=== PATIENT | female | born 2000 | race African-American/Black ===

== ENCOUNTER 2023-09-02 21:41 | Emergency (ER) | payer OTHER ==
[2023-09-02] MEDS ORDERED: ONDANSETRON 4 MG/2 ML VIAL IVP STA (22:02)
[2023-09-02] MEDS ORDERED: SODIUM CHLORIDE 0.9% 1,000 ML IV STA (22:02)
[2023-09-02] MEDS ORDERED: HYDROmorphone 1 MG/ML CARPUJECT IVP STA ×2 (22:02→23:38)
[2023-09-02 22:12] LABS: BASOPHILS % (AUTO) 0.3 %; EOSINOPHILS # (AUTO) 0.1 10^3/uL (0.0-0.7); EOSINOPHILS % (AUTO) 0.5 %; HCT - HEMATOCRIT 34.6 % (37.0-47.0); HGB - HEMOGLOBIN 10.6 g/dL (12.0-16.0); LYMPHOCYTES # (AUTO) 2.5 10^3/uL (1.5-3.5); MEAN CORPUSCULAR HEMOGLOBIN 26.7 pg (27.0-31.0); MEAN CORPUSCULAR HGB CONC 30.6 g/dL (32.0-36.0); MEAN CORPUSCULAR VOLUME 87.2 fL (81.0-99.0); MEAN PLATELET VOLUME 9.7 fL (7.9-10.8); MONOCYTES # (AUTO) 0.4 10^3/uL (0.0-1.0); MONOCYTES % (AUTO) 4.6 %; NEUTROPHILS # (AUTO) 6.2 10^3/uL (1.5-6.6); NEUTROPHILS % (AUTO) 67.4 %; PLT - PLATELET COUNT 331 10^3/uL (130-450); RED BLOOD COUNT 3.97 10^6/uL (4.20-5.40); RED CELL DISTRIBUTION WIDTH 13.6 % (12.0-15.0); WHITE BLOOD COUNT 9.2 x10^3/uL (4.8-10.8)
[2023-09-02 22:32] LABS: ALBUMIN 4.4 g/dL (3.2-5.5); ALBUMIN/GLOBULIN RATIO 1.4 (1.0-2.2); BILIRUBIN,TOTAL 0.3 mg/dL (0.2-1.0); CALCIUM 9.1 mg/dL (8.5-10.3); CREATININE 0.7 mg/dL (0.6-1.3); POTASSIUM 3.8 mmol/L (3.5-4.5); TOTAL PROTEIN 7.5 g/dL (6.4-8.9)
[2023-09-02 22:34] LABS: HCG,QUALITATIVE BLOOD NEGATIVE
[2023-09-02] MEDS ORDERED: DROPERIDOL 5 MG/2 ML VIAL IVP STA (23:38)
[2023-09-02] MEDS ORDERED: iohexoL-300 100 ML VIAL IVP ONE (23:43)
[2023-09-02 23:46] LABS: BILIRUBIN,URINE NEGATIVE (NEGATIVE); GLUCOSE, URINE (UA) NEGATIVE (NEGATIVE); KETONES,URINE (UA) NEGATIVE (NEGATIVE); LEUKOCYTE ESTERASE, URINE NEGATIVE (NEGATIVE); NITRITE,URINE NEGATIVE (NEGATIVE); OCCULT BLOOD,URINE NEGATIVE (NEGATIVE); PROTEIN,URINE NEGATIVE (NEGATIVE); UROBILINOGEN,URINE 0.2 (NORMAL) E.U./dL (NORMAL)
[2023-09-02 23:48] LABS: CLARITY,URINE CLEAR (CLEAR)
[2023-09-02 23:56] VITALS: BP 138/70; O2SAT 96
--- NOTE | 2023-09-03 00:01 | CT Report ---
PROCEDURE: ABDOMEN/PELVIS W INDICATIONS: severe low abd pain CONTRAST: 100 ML OMNI 300 TECHNIQUE: After the administration of contrast, 5 mm thick sections acquired from the diaphragms to the symphys is. 5 mm thick coronal and sagittal reformats were acquired. For radiation dose reduction, the foll owing was used: automated exposure control, adjustment of mA and/or kV according to patient size. COMPARISON: FINDINGS: Image quality: Excellent. Lung bases and heart: 3 mm groundglass density nodule in anterolateral right lung base is seen series 3 image 10. Heart size is normal, no pericardial effusion.. Liver: No solid mass. Gallbladder and biliary tree: No radiopaque stones or wall thickening. No biliary dilation. Spleen: No splenomegaly. Pancreas: No pancreatic ductal dilation. Adrenals: No adrenal nodule. Kidneys and ureters: No hydronephrosis. No renal cystic lesion which requires follow up. No solid mas s. Bowel and peritoneum: There is no evidence of bowel obstruction. Appendix is visualized in right lowe r quadrant abdomen and is normal in size and appearance. No abnormal bowel wall thickening. Mild feca l stasis in the colon is seen. No abscess collection. No free fluid of free air. Lymph nodes: No central or retroperitoneal adenopathy. Vessels: No infrarenal aortic aneurysm. PELVIS Reproductive organs: Fluid is noted within endometrium. Small amount of free fluid is seen in posteri or cul-de-sac.. Bladder: No abnormal wall thickening, accounting for underdistension. Pelvic lymph nodes: No pelvic adenopathy by size criteria. Bones: No aggressive osseous abnormality. Other: No significant ventral or inguinal hernia. IMPRESSION: 1. Normal appendix. No bowel obstruction or abnormal bowel wall thickening. No free fluid of free air . 2. Physiologic amount of free fluid in posterior cul-de-sac. Fluid within endometrium. No gross abnor mality is seen in bilateral ovaries. Reviewed by: Greg Castillo MD on 09/03/2023 12:00 AM PST Approved by: Greg Castillo MD on 09/03/2023 12:00 AM PST Station ID: [id number]
[2023-09-03] MEDS ORDERED: HYDROcod/ACET 5/325 Prepack 4 PO STA (00:36)
[2023-09-03] MEDS ORDERED: ONDANSETRON ODT 4 MG Prepack 2 TL PRN (00:36)
--- NOTE | 2023-09-03 00:39 | ED Physician Documentation ---
PD HPI ABD PAIN - Stated complaint Stated Complaint: ABD PX - Chief complaint Chief Complaint: Abd Pain - History obtained from History obtained from: Patient - Additional information Additional information: The pt comes to the ED with CC of R pelvic and lower quadrant pain for the past approximately 48 hours. She states that the pain had been waxing and waning initially, but for the past 24 hours, has been constant. She denies fevers, chills, appetite change, or nausea. She has had pain like this before, when she had a large ovarian cyst rupture. She states at that time, she was admitted to the hospital for pain control. She denies surgical history on her abdomen or pelvis. No vaginal or urinary sx. 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 - Present Medications Home Medications: Ambulatory Orders Medication Instructions Recorded Confirmed HYDROcod/ACETAM 5/325 [[place] 5/325] 1 - 2 tablet PO Q6H PRN #14 tablet 09/03/23 Ondansetron Odt [Zofran] 4 mg TL Q6H PRN #10 tablet 09/03/23 - Allergies Allergies/Adverse Reactions: Allergies Allergy/AdvReac Type Severity Reaction Status Date / Time No Known Drug Allergies Allergy Verified 09/02/23 21:51 - Social History Does the pt smoke?: No Smoking Status: Never smoker Does the pt drink ETOH?: No Does the pt have substance abuse?: No - Immunizations Immunizations are current?: Yes - POLST Patient has POLST: No PD ED PE NORMAL - Vitals Vital signs reviewed: Yes - General General: Alert and oriented X 3, No acute distress (appears mildly uncomfortable), Well developed/nourished - HEENT HEENT: Atraumatic, PERRL, EOMI, Moist mucous membranes - Neck Neck: Supple, no meningeal sign - Cardiac Cardiac: RRR, No murmur, Strong equal pulses - Respiratory Respiratory: No respiratory distress, Clear bilaterally - Abdomen Abdomen: Soft, Non distended, Other (moderate tenderness RLQ/pelvis, no rebound or guarding) - Back Back: No CVA TTP - Derm Derm: Normal color, Warm and dry, No rash - Extremities Extremities: No deformity - Neuro Neuro: Alert and oriented X 3, Other (grossly intact) - Psych Psych: Normal mood, Normal affect Results - Vitals Vitals: Oxygen O2 Source Room air - Labs Labs: Laboratory Tests 09/02/23 09/02/23 09/02/23 22:08 22:08 22:08 WBC 9.2 RBC 3.97 L Hgb 10.6 L Hct 34.6 L MCV 87.2 MCH 26.7 L MCHC 30.6 L RDW 13.6 Plt Count 331 MPV 9.7 Neut # (Auto) 6.2 Lymph # (Auto) 2.5 [place] # (Auto) 0.4 Eos # (Auto) 0.1 Baso # (Auto) 0.0 Absolute Nucleated RBC 0.00 Nucleated RBC % 0.0 Sodium 134 L Potassium 3.8 Chloride 103 Carbon Dioxide 26 Anion Gap 5.0 L BUN 11 Creatinine 0.7 Estimated GFR (MDRD) 103 Glucose 77 Calcium 9.1 Total Bilirubin 0.3 AST 13 ALT 7 L Alkaline Phosphatase 46 Total Protein 7.5 Albumin 4.4 Globulin 3.1 Albumin/Globulin Ratio 1.4 Lipase 20 Serum HCG, Qual NEGATIVE Urine Color Urine Clarity Urine pH Ur Specific [place] Urine Protein Urine Glucose (UA) Urine Ketones Urine Occult Blood Urine Nitrite Urine Bilirubin Urine Urobilinogen Ur Leukocyte Esterase Ur Microscopic Review Urine Culture Comments 09/02/23 23:12 WBC RBC Hgb Hct MCV MCH MCHC RDW Plt Count MPV Neut # (Auto) Lymph # (Auto) [place] # (Auto) Eos # (Auto) Baso # (Auto) Absolute Nucleated RBC Nucleated RBC % Sodium Potassium Chloride Carbon Dioxide Anion Gap BUN Creatinine Estimated GFR (MDRD) Glucose Calcium Total Bilirubin AST ALT Alkaline Phosphatase Total Protein Albumin Globulin Albumin/Globulin Ratio Lipase Serum HCG, Qual Urine Color YELLOW Urine Clarity CLEAR Urine pH 6.0 Ur Specific [place] 1.010 Urine Protein NEGATIVE Urine Glucose (UA) NEGATIVE Urine Ketones NEGATIVE Urine Occult Blood NEGATIVE Urine Nitrite NEGATIVE Urine Bilirubin NEGATIVE Urine Urobilinogen 0.2 (NORMAL) Ur Leukocyte Esterase NEGATIVE Ur Microscopic Review NOT INDICATED Urine Culture Comments NOT INDICATED - Rads (name of study) CT abd/pelvis Relevant Findings:: Final report received, See rad report PD Medical Decision Making - ED course Complexity details: reviewed results, re-evaluated patient, considered differential, d/w patient ED course: The pt's labs were unremarkable. test was negative. Given the location of the pain, there were a number of possibilities in a female pt, and I felt she should have imaging. However, US was not available until morning, so I did order a contrast CT. This showed a normal appendix, unremarkable adnexa, and a small amount of free fluid in the pelvis. I d/w pt that I am not sure what is causing her pain. It is possible that she had a small cyst rupture, but this has not been definitely identified on CT. We have discussed that the timeline and findings make the possibility of torsion unlikely, but that if the pt's pain continues to worsen, she should return to have an US. We have discussed follow up and home management of sx, as well. Departure - Departure Disposition: Home, Self Care Clinical Impression: Abdominal pain Qualifiers: Abdominal location: lower abdomen, unspecified Qualified Code(s): R10.30 - Lower abdominal pain, unspecified Condition: Stable Instructions: ED Abdominal Pain Female Non-Specific Abdominal Pain Prescriptions: HYDROcod/ACETAM 5/325 [[place] 5/325] 1 - 2 tablet PO Q6H PRN #14 tablet PRN Reason: Pain Ondansetron Odt [Zofran] 4 mg TL Q6H PRN #10 tablet PRN Reason: Nausea / Vomiting Comments: Your labs and CT scan look good. You have a little bit of fluid in your pelvic cavity, and it is possible that you have had another ovarian cyst rupture. However, the fluid is not excessive and does not appear to be blood or pus. As such, we would expect this to blow over well on its own. Your appendix is also been visualized and there is no evidence of appendicitis. At this point in time, we have given you prepacks for pain and nausea medication and prescriptions for the same have been electronically transmitted to the [facility] pharmacy in [place] your request. Please schedule an appointment to follow- up with your primary care provider for reevaluation this week. If things seem to be getting much worse, please come back to the emergency department for further evaluation. Forms: PCP List Discharge Date/Time: 09/03/23 00:58
== END 2023-09-03 00:58 | disposition home or self-care (01) ==
LOC: ED 21:41
DX: R10.31 Right lower quadrant pain (principal)
CPT/HCPCS: 36415; 74177; 80053; 81003; 83690; 84703; 85025; 96374; 96375; 99283; 99284; J1170; Q9967; 81001; 87086

== ENCOUNTER 2023-11-18 16:34 | Emergency (ER) | payer OTHER ==
--- NOTE | 2023-11-18 17:05 | ED Physician Documentation ---
PD HPI LOWER EXT INJURY - Stated complaint Stated Complaint: R FOOT INJ - Chief complaint Chief Complaint: Ext Problem - History obtained from History obtained from: Patient (She stubbed her right fourth toe twice over the last week and now has moderate pain. No other injuries. Declines pain medication on initial evaluation. 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 - Present Medications Home Medications: Ambulatory Orders Medication Instructions Recorded Confirmed HYDROcod/ACETAM 5/325 [[place] 5/325] 1 - 2 tablet PO Q6H PRN #14 tablet 09/03/23 Ondansetron Odt [Zofran] 4 mg TL Q6H PRN #10 tablet 09/03/23 - Allergies Allergies/Adverse Reactions: Allergies Allergy/AdvReac Type Severity Reaction Status Date / Time No Known Drug Allergies Allergy Verified 09/02/23 21:51 - Social History Does the pt smoke?: No Smoking Status: Never smoker Does the pt drink ETOH?: No Does the pt have substance abuse?: No - Immunizations Immunizations are current?: Yes - POLST Patient has POLST: No PD ED PE NORMAL - Vitals Vital signs reviewed: Yes - General General: Alert and oriented X 3, No acute distress - Extremities Extremities: Other (Tender to the right fourth toe without obvious deformity and pain with range of motion. The remainder of the right foot is nontender.) - Neuro Neuro: Alert and oriented X 3, Normal speech Results - Vitals Vitals: Vital Signs - 24 hr 11/18/23 11/18/23 16:52 18:24 Temperature 36.7 C Heart Rate 88 78 Respiratory 16 15 Rate Blood Pressure 116/72 115/70 O2 Saturation 99 100 Oxygen O2 Source Room air - Rads (name of study) Three-view x-ray right fourth toe is negative for fracture. Relevant Findings:: Final report received, EMP independent interpretation of test PD Medical Decision Making - ED course ED course: She presents with a right fourth toe injury. No fracture. Counseled on conservative care and Follow-up precautions. Departure - Departure Disposition: Home, Self Care Clinical Impression: Sprain of right great toe Qualifiers: Encounter type: initial encounter Qualified Code(s): S93.501A - Unspecified sprain of right great toe, initial encounter Condition: Good Record reviewed to determine appropriate education?: Yes Instructions: ED Sprain Toe Comments: The x-ray is normal, there is no fracture. You can take Tylenol and/or ibuprofen as needed per package instructions for pain. You want to wear supportive shoes that protect the foot from further injuries. Follow-up with your doctor in a week if not better, return for new or worsening symptoms. As well. Forms: PCP List Discharge Date/Time: 11/18/23 18:30
--- NOTE | 2023-11-18 18:07 | XRAY Report ---
PROCEDURE: Toe(s) 2+V RT INDICATIONS: Right fourth toe injury TECHNIQUE: 3 views of the toe(s) were obtained. COMPARISON: None FINDINGS: Bones: No fractures or dislocations. No suspicious bony lesions. Soft tissues: No suspicious soft tissue densities. IMPRESSION: Unremarkable toe radiographs Reviewed by: Ramon Nicole MD on 11/18/2023 5:06 PM [place] Approved by: Ramon Nicole MD on 11/18/2023 5:06 PM [place] Station ID: [id number]
[2023-11-18 18:31] VITALS: BP 115/70; O2SAT 100
== END 2023-11-18 18:30 | disposition home or self-care (01) ==
LOC: ED 16:34
DX: S93.504A Unspecified sprain of right lesser toe(s), initial encounter (principal); W22.8XXA Striking against or struck by other objects, initial encounter
CPT/HCPCS: 99283